=== PATIENT | female | born 1960 | race Caucasian/White ===

== ENCOUNTER → 2020-09-27 | Outpatient (CLI) | payer OTHER ==
[~2020-09-27] MED LIST: ALLOPURINOL100 MG PO; ALPRAZOLAM1 MG PO; BYDUREON2 MG SC; CIPRO500 MG PO; CITALOPRAM HBR10 MG PO; CYCLOBENZAPRINE10 MG PO; ELAVIL 10 MG TA10 MG PO; HUMALOG MI100 UNIT/2 SC; HYDROCHLOROTHIA25 MG PO; IBUPROFEN800 MG PO; LEVOTHYROXINE125 MCG PO; MELOXICAM15 MG PO; MELOXICAM7.5 MG PO; METFORMIN HCL1000 MG PO; MONTELUKAST SOD10 MG PO; NEURONTIN 400400 MG PO; OMEPRAZOLE20 MG PO; SIMVASTATIN20 MG PO; TORADOL 10 MG T10 MG PO; TRAMADOL HCL50 MG PO; VITAMIN D2400 UNIT PO
== END ==
LOC: MAMO 14:26
DX: Z12.31 Encounter for screening mammogram for malignant neoplasm of breast (principal); N63.20 Unspecified lump in the left breast, unspecified quadrant
CPT/HCPCS: 77063; 77067